=== PATIENT | male | born 1990 | race Asian ===

== ENCOUNTER 2022-02-15 21:51 | Emergency (ER) | payer OTHER ==
[~2022-02-15] VITALS: Ht 165.1 cm; Wt 81.6 kg
[2022-02-15 22:17] VITALS: BP 133/70
[2022-02-15] MEDS ORDERED: AMOX-430 PO (22:24)
[2022-02-15] MEDS ORDERED: AMOX/CLAVULANATE 875 MG TABLET ONE (22:29)
[2022-02-15] MEDS ORDERED: TDAP [DIPH/PERTUSSIS/TET] 0.5 ML VIAL IM ONE ×2 (22:30)
[2022-02-15] MEDS ORDERED: AMOX/CLAVULANATE 875 MG TABLET PO ONE (22:30)
[2022-02-17] MEDS ORDERED: AMOX-430 PO (00:14)
== END 2022-02-15 22:40 | disposition home or self-care (01) ==
LOC: ER 21:55
DX: S01.351A Open bite of right ear, initial encounter (principal); Z60.2 Problems related to living alone; Z79.899 Other long term (current) drug therapy; W54.0XXA Bitten by dog, initial encounter; Y93.89 Activity, other specified; Y92.89 Other specified places as the place of occurrence of the external cause; Y99.8 Other external cause status
CPT/HCPCS: 90715